=== PATIENT | female | born 1945 | race Caucasian/White ===

== ENCOUNTER 2016-08-28 11:34 | Emergency (ER) | payer OTHER ==
[~2016-08-28] VITALS: Ht 162.6 cm; Wt 98.0 kg
[~2016-08-28 11:34] MED LIST: COUM5TAB PO; COUM7.5T PO; ROBA750T3 PO; ZOCO40TA PO
[2016-08-28 11:37] VITALS: BP 146/91; PULSE 90; RESP 16; TEMP 97.6; O2SAT 97
[2016-08-28] MEDS ORDERED: WARF-23 PO (11:58)
[2016-08-28] MEDS ORDERED: LEVO25TA4 PO (11:58)
[2016-08-28] MEDS ORDERED: OMEP20TA PO (11:58)
[2016-08-28] MEDS ORDERED: SIMV40TA PO (11:58)
[2016-08-28] MEDS ORDERED: SODIUM CHLOR 0.9% 1000 ML INJ 1,000 ML IV ONE (12:09)
[2016-08-28] MEDS ORDERED: DEXAMETHASONE SOD PHOS 20 MG/5 ML VIAL IV PUSH ONE (12:15)
[2016-08-28] MEDS ORDERED: diphenhydrAMINE HCL 50 MG/ML VIAL IV PUSH ONE (12:15)
[2016-08-28] MEDS ORDERED: SODIUM CHLORIDE 0.9% FLUSH 10 ML FLUSH IVF PRN (12:15)
[2016-08-28] MEDS ORDERED: METOCLOPRAMIDE HCL 10 MG/2 ML VIAL IVP ONE (12:15)
[2016-08-28 12:18] VITALS: O2SAT 98
--- NOTE | 2016-08-28 12:26 | PD ---
HPI Chief Complaint: Dizziness Time Seen by Provider: 11:56 Travel History International Travel<30 days: No Contact w/Intl Traveler<30days: No Traveled to known affect area: No History of Present Illness HPI Patient is a 70-year-old female who presents to emergency room with c/o of a headache. She reports that she has had a headache since yesterday and reports that it is frontal in nature. Denies any trauma or fall, denies any vision changes. Reports no nausea or vomiting with her symptoms. Patient reports that this is not the worse headache her life, she did not take any medications for relief her symptoms. Patient reports that this morning, she had an episode of dizziness, reports that she felt vertiginous, reports that symptoms lasted 15 minutes and resolved on its own. Patient at this time denies any dizziness, reports only a frontal headache. 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 Patient denies any chest pain or shortness of breath, no fevers or chills, no other complaints at this time. PFSH Past Medical History Hx Anticoagulant Therapy: Yes (WARFARIN) Atrial Fibrillation: Yes Cardiovascular Problems: Yes (CHOL) High Cholesterol: Yes Diabetes: No Diminished Hearing: No Deep Vein Thrombosis: Yes (LEFT LEG in past pe) Immunizations Current: No Thyroid Disease: Yes Tetanus Vaccination: Unknown Influenza Vaccination: No ?: Not Menopausal: Yes Past Surgical History Other Surgery: Yes (VENA CAVA FILTER) Social History Alcohol Use: No Tobacco Use: No Substance Use: No Allergies-Medications (Allergen,Severity, Reaction): Coded Allergies: No Known Allergies (Unverified , 08/28/16) Reported Meds & Prescriptions Reported Meds & Active Scripts Active Reported Omeprazole 20 Mg Tab 20 Mg PO DAILY Levothyroxine (Levothyroxine Sodium) 25 Mcg Tab 25 Mcg PO DAILY Simvastatin 40 Mg Tab 40 Mg PO DAILY Warfarin 5 Mg Tab 5 Mg PO DAILY Review of Systems General / Constitutional: No: Fever Eyes: No: Diploplia, Blurred Vision, Photophobia, Drainage, Visual changes HENT: Positive: Headaches, Vertigo, No: Lightheadedness Cardiovascular: No: Chest Pain or Discomfort Respiratory: No: Shortness of Breath Gastrointestinal: No: Abdominal Pain Genitourinary: No: Dysuria Musculoskeletal: No: Pain Skin: No Rash Neurologic: Positive: Dizziness, Headache, No: Weakness, Syncope, Coordination Problem, Tremor, Slurred Speech, Paresthesia, Incontinence, Seizures, Sensory Disturbance Psychiatric: No: Depression Endocrine: No: Polydipsia Hematologic/Lymphatic: No: Easy Bruising Physical Exam Narrative GENERAL: NAD, nontoxic SKIN: Focused skin assessment warm/dry. HEAD: Atraumatic. Normocephalic. EYES: Pupils equal and round. No scleral icterus. No injection or drainage. ENT: No nasal bleeding or discharge. Mucous membranes pink and moist. NECK: Trachea midline. No JVD. CARDIOVASCULAR: Regular rate and rhythm. No murmur appreciated. RESPIRATORY: No accessory muscle use. Clear to auscultation. Breath sounds equal bilaterally. GASTROINTESTINAL: Abdomen soft, non-tender, nondistended. Hepatic and splenic margins not palpable. MUSCULOSKELETAL: No obvious deformities. No clubbing. No cyanosis. No edema. NEUROLOGICAL: Awake and alert. No obvious cranial nerve deficits. Motor grossly within normal limits. Normal speech. CN 2-12 grossly intact with no neurovascular compromise PSYCHIATRIC: Appropriate mood and affect; insight and judgment normal. Data Data Last Documented VS Vital Signs Date Time Temp Pulse Resp B/P Pulse Ox O2 Delivery O2 Flow Rate FiO2 08/28/16 14:12 76 18 135/75 98 Room Air 08/28/16 11:37 97.6 Orders Complete Blood Count With Diff (08/28/16 12:09) Comprehensive Metabolic Panel (08/28/16 12:09) Prothrombin Time / Inr (Pt) (08/28/16 12:09) Act Partial Throm Time (Ptt) (08/28/16 12:09) Ct Brain W/O Iv Contrast(Rout) (08/28/16 12:09) Ecg Monitoring (08/28/16 12:09) Iv Access Insert/Monitor (08/28/16 12:09) Oximetry (08/28/16 12:09) Sodium Chloride 0.9% Flush (Ns Flush) (08/28/16 12:15) Metoclopramide Inj (Reglan Inj) (08/28/16 12:15) Sodium Chlor 0.9% 1000 Ml Inj (Ns 1000 M (08/28/16 12:09) Diphenhydramine Inj (Benadryl Inj) (08/28/16 12:15) Dexamethasone Inj (Decadron Inj) (08/28/16 12:15) Urinalysis - C+S If Indicated (08/28/16 12:09) Amoxicil-Clavulanate (Augmentin) (08/28/16 14:15) Labs Laboratory Tests Test 08/28/16 08/28/16 12:18 13:30 White Blood Count 4.9 TH/MM3 Red Blood Count 4.51 MIL/MM3 Hemoglobin 14.2 GM/DL Hematocrit 41.5 % Mean Corpuscular Volume 92.2 FL Mean Corpuscular Hemoglobin 31.6 PG Mean Corpuscular Hemoglobin 34.3 % Concent Red Cell Distribution Width 12.9 % Platelet Count 203 TH/MM3 Mean Platelet Volume 7.5 FL Neutrophils (%) (Auto) 54.3 % Lymphocytes (%) (Auto) 32.3 % Monocytes (%) (Auto) 7.4 % Eosinophils (%) (Auto) 4.7 % Basophils (%) (Auto) 1.3 % Neutrophils # (Auto) 2.5 TH/MM3 Lymphocytes # (Auto) 1.6 TH/MM3 Monocytes # (Auto) 0.4 TH/MM3 Eosinophils # (Auto) 0.2 TH/MM3 Basophils # (Auto) 0.1 TH/MM3 CBC Comment DIFF FINAL Differential Comment Prothrombin Time 24.4 SEC Prothromb Time International 2.1 RATIO Ratio Activated Partial 35.5 SEC Thromboplast Time Sodium Level 142 MEQ/L Potassium Level 3.7 MEQ/L Chloride Level 107 MEQ/L Carbon Dioxide Level 30.4 MEQ/L Anion Gap 5 MEQ/L Blood Urea Nitrogen 14 MG/DL Creatinine 0.76 MG/DL Estimat Glomerular Filtration 75 ML/MIN Rate Random Glucose 105 MG/DL Calcium Level 8.2 MG/DL Total Bilirubin 0.5 MG/DL Aspartate Amino Transf 17 U/L (AST/SGOT) Alanine Aminotransferase 20 U/L (ALT/SGPT) Alkaline Phosphatase 92 U/L Total Protein 7.1 GM/DL Albumin 3.2 GM/DL Urine Collection Type CLEAN CATCH Urine Color YELLOW Urine Turbidity CLEAR Urine pH 6.0 Urine Specific Spangle 1.022 Urine Protein NEG mg/dL Urine Glucose (UA) NEG mg/dL Urine Ketones NEG mg/dL Urine Occult Blood NEG Urine Nitrite NEG Urine Bilirubin NEG Urine Leukocyte Esterase NEG Urine Squamous Epithelial 6-8 /hpf Cells Urine Amorphous Sediment MOD Microscopic Urinalysis Comment CULT NOT INDICATED Urine Collection Time 1330 MDM Medical Decision Making Medical Screen Exam Complete: Yes Emergency Medical Condition: Yes Interpretation(s) Vital Signs Date Time Temp Pulse Resp B/P Pulse Ox O2 Delivery O2 Flow Rate FiO2 08/28/16 11:47 95 97 Room Air 08/28/16 11:37 97.6 90 16 146/91 97 Differential Diagnosis Differential includes intracranial hemorrhage, cephalgia, electrolyte abnormality, dehydration, vertigo Narrative Course Patient is a 70-year-old female who presents to emergency room with complaints of headache and dizziness. It's that she has headache since yesterday, reports that "pressure to my forehead" since yesterday. Patient reports 15 minutes of dizziness this morning which has since resolved. Patient has not taken any medications for resolution of her headache. Patient well-appearing, cranial nerves 2- 12 grossly intact with no neurological deficits. Vital Signs Date Time Temp Pulse Resp B/P Pulse Ox O2 Delivery O2 Flow Rate FiO2 08/28/16 11:47 95 97 Room Air 08/28/16 11:37 97.6 90 16 146/[address] head, will obtain lab work, will treat as a migraine headache with steroids, antiemetics and Benadryl and IV fluids. Vital Signs Date Time Temp Pulse Resp B/P Pulse Ox O2 Delivery O2 Flow Rate FiO2 08/28/16 14:12 76 18 135/75 98 Room Air 08/28/16 13:16 76 18 146/77 100 Room Air 08/28/16 12:18 98 Room Air 08/28/16 11:47 95 97 Room Air 08/28/16 11:37 97.6 90 16 146/91 97 Laboratory Tests Test 08/28/16 08/28/16 12:18 13:30 White Blood Count 4.9 TH/MM3 (4.0-11.0) Red Blood Count 4.51 MIL/MM3 (4.00-5.30) Hemoglobin 14.2 GM/DL (11.6-15.3) Hematocrit 41.5 % (35.0-46.0) Mean Corpuscular Volume 92.2 FL (80.0-100.0) Mean Corpuscular Hemoglobin 31.6 PG (27.0-34.0) Mean Corpuscular Hemoglobin 34.3 % Concent (32.0-36.0) Red Cell Distribution Width 12.9 % (11.6-17.2) Platelet Count 203 TH/MM3 (150-450) Mean Platelet Volume 7.5 FL (7.0-11.0) Neutrophils (%) (Auto) 54.3 % (16.0-70.0) Lymphocytes (%) (Auto) 32.3 % (9.0-44.0) Monocytes (%) (Auto) 7.4 % (0.0-8.0) Eosinophils (%) (Auto) 4.7 % (0.0-4.0) Basophils (%) (Auto) 1.3 % (0.0-2.0) Neutrophils # (Auto) 2.5 TH/MM3 (1.8-7.7) Lymphocytes # (Auto) 1.6 TH/MM3 (1.0-4.8) Monocytes # (Auto) 0.4 TH/MM3 (0-0.9) Eosinophils # (Auto) 0.2 TH/MM3 (0-0.4) Basophils # (Auto) 0.1 TH/MM3 (0-0.2) CBC Comment DIFF FINAL Differential Comment Prothrombin Time 24.4 SEC (9.8-11.6) Prothromb Time International 2.1 RATIO Ratio Activated Partial 35.5 SEC Thromboplast Time (24.3-30.1) Sodium Level 142 MEQ/L (136-145) Potassium Level 3.7 MEQ/L (3.5-5.1) Chloride Level 107 MEQ/L (98-107) Carbon Dioxide Level 30.4 MEQ/L (21.0-32.0) Anion Gap 5 MEQ/L (5-15) Blood Urea Nitrogen 14 MG/DL (7-18) Creatinine 0.76 MG/DL (0.50-1.00) Estimat Glomerular Filtration 75 ML/MIN (>89) Rate Random Glucose 105 MG/DL (74-106) Calcium Level 8.2 MG/DL (8.5-10.1) Total Bilirubin 0.5 MG/DL (0.2-1.0) Aspartate Amino Transf 17 U/L (15-37) (AST/SGOT) Alanine Aminotransferase 20 U/L (10-53) (ALT/SGPT) Alkaline Phosphatase 92 U/L (45-117) Total Protein 7.1 GM/DL (6.4-8.2) Albumin 3.2 GM/DL (3.4-5.0) Urine Collection Type CLEAN CATCH Urine Color YELLOW (YELLW/STRAW) Urine Turbidity CLEAR (CLEAR) Urine pH 6.0 (5.0-8.5) Urine Specific Spangle 1.022 (1.002-1.035) Urine Protein NEG mg/dL (NEG-TRACE) Urine Glucose (UA) NEG mg/dL (NEG) Urine Ketones NEG mg/dL (NEG) Urine Occult Blood NEG (NEG) Urine Nitrite NEG (NEG) Urine Bilirubin NEG (NEG) Urine Leukocyte Esterase NEG (NEG) Urine Squamous Epithelial 6-8 /hpf (0-5) Cells Urine Amorphous Sediment MOD Microscopic Urinalysis Comment CULT NOT INDICATED Urine Collection Time [address] 08/28/16 1209 Signed Impressions: Service Date/Time: Sunday, August 28, 2016 12:15 - CONCLUSION: Unremarkable study except for left maxillary sinus mucus retention cyst and possible mucosal swelling. Gm Bryson MD Patient reevaluated, patient with complete resolution of symptoms at this time. Patient ambulating in ER with normal gait. I reviewed all labs and all studies as well as all findings with patient in detail. I did give patient a copy of her CT report. Patient will follow-up with her primary care doctor and will return to the emergency with as needed. Signs an symptoms of when to return to the ER was reviewed with patient and her daughter in detail. Diagnosis Primary Impression: Sinusitis Qualified Code: J01.90 - Acute non-recurrent sinusitis, unspecified location Additional Impression: Cephalgia Qualified Code: R51 - Nonintractable headache, unspecified chronicity pattern , unspecified headache type Patient Instructions: General Instructions Additional Instructions: Please follow-up with your primary care doctor Return to emergency room if symptoms worsen or progress Return to the emergency room as needed Please take all antibiotics as prescribed Med/Other Pt SpecificInfo: Prescription(s) given Scripts Amoxicillin-Clavulanate (Augmentin)875-125 Mg Tab1 Tab PO BID 10 Days Ref 0 Prov:Heidi Burdick DO 08/28/16 Disposition: 01 DISCHARGE HOME Condition: Stable Heidi Burdick DO Aug 28, 2016 12:26
[2016-08-28 12:32] LABS: AUTOMATED NEUTROPHIL # 2.5 TH/MM3 (1.8-7.7); BASOPHIL # 0.1 TH/MM3 (0-0.2); BASOPHIL % 1.3 % (0.0-2.0); EOSINOPHIL # 0.2 TH/MM3 (0-0.4); EOSINOPHIL % 4.7 % (0.0-4.0); HEMATOCRIT 41.5 % (35.0-46.0); HEMO FLAGS DIFF FINAL; LYMPH % 32.3 % (9.0-44.0); LYMPHOCYTE # 1.6 TH/MM3 (1.0-4.8); MEAN CELL VOLUME 92.2 FL (80.0-100.0); MEAN CORPUSCULAR HEMOGLOBIN 31.6 PG (27.0-34.0); MEAN CORPUSCULAR HGB CONC 34.3 % (32.0-36.0); MONO % 7.4 % (0.0-8.0); NEUT % 54.3 % (16.0-70.0); PLATELET COUNT 203 TH/MM3 (150-450); RED BLOOD COUNT 4.51 MIL/MM3 (4.00-5.30); RED CELL DISTRIBUTION WIDTH 12.9 % (11.6-17.2); WHITE BLOOD COUNT 4.9 TH/MM3 (4.0-11.0)
[2016-08-28 12:38] LABS: CHLORIDE 107 MEQ/L (98-107); POTASSIUM 3.7 MEQ/L (3.5-5.1); SODIUM (NA) 142 MEQ/L (136-145)
[2016-08-28 12:41] LABS: ANION GAP 5 MEQ/L (5-15); BICARBONATE 30.4 MEQ/L (21.0-32.0); BLOOD UREA NITROGEN 14 MG/DL (7-18)
[2016-08-28 12:43] LABS: APTT (PATIENT) 35.5 SEC (24.3-30.1); INTERNATIONAL NORMALIZED RATIO 2.1 RATIO; PROTHROMBIN TIME - PATIENT 24.4 SEC (9.8-11.6)
[2016-08-28 12:44] LABS: ALT (GPT) 20 U/L (10-53); AST (GOT) 17 U/L (15-37); GLOMERULAR FILTRATION RATE 75 ML/MIN (>89)
[2016-08-28 12:46] LABS: TOTAL BILIRUBIN ADULT 0.5 MG/DL (0.2-1.0)
[2016-08-28 12:47] LABS: ALKALINE PHOSPHATASE 92 U/L (45-117)
--- NOTE | 2016-08-28 12:51 | RADRPT ---
EXAM DATE/TIME: 08/28/2016 12:15 [facility] COMPARISON: No previous studies available for comparison. INDICATIONS : Dizziness and head pressure. RADIATION DOSE: 60.87 CTDIvol (mGy) MEDICAL HISTORY : Hypercholesterolemia. Anticoagulant therapy SURGICAL HISTORY : Vena cava filter ENCOUNTER: Initial ACUITY: 1 day PAIN SCALE: 2/10 LOCATION: cranial TECHNIQUE: Multiple contiguous axial images were obtained of the head. Using automated exposure control and adj ustment of the mA and/or kV according to patient size, radiation dose was kept as low as reasonably a chievable to obtain optimal diagnostic quality images. DICOM format image data is available electro nically for review and comparison. FINDINGS: There is no evidence for intracranial hemorrhage, mass effect, mass lesions, edema, or extra-axial fl uid collections. The visualized bony structures appear intact. The ventricles are normal size for t he patient's age. There are no signs of acute infarction for technique. There is a mucus retention c yst and/or mucoperiosteal thickening of the left maxillary sinus. CONCLUSION: Unremarkable study except for left maxillary sinus mucus retention cyst and poss ible mucosal swelling. Gm Bryson MD on August 28, 2016 at 12:48 Board Certified Radiologist. This report was verified electronically.
[2016-08-28 13:16] VITALS: BP 146/77; PULSE 76; RESP 18; O2SAT 100
[2016-08-28 13:49] LABS: BLOOD, URINE NEG (NEG); GLUCOSE,URINE NEG (NEG); KETONE, URINE NEG (NEG); NITRITE,URINE NEG (NEG)
[2016-08-28 14:00] LABS: CULTURE IF INDICATED CULT NOT INDICATED; METHOD OF COLLECTION CLEAN CATCH; URINE COLOR YELLOW (YELLW/STRAW)
[2016-08-28 14:01] LABS: COMMENT (UR) CULT NOT INDICATED; COMMENT2 (UR) MUCOUS PRESENT
[2016-08-28 14:12] VITALS: BP 135/75; PULSE 76; RESP 18; O2SAT 98
[2016-08-28] MEDS ORDERED: AMOXICILLIN/CLAVULANATE K 875 MG TAB PO ONE (14:15)
[2016-08-28] MEDS ORDERED: AUGM875T3 PO (14:40)
== END 2016-08-28 14:54 | disposition home or self-care (01) ==
LOC: PHED 11:34
DX: J01.90 Acute sinusitis, unspecified (principal); R51 Headache; R42 Dizziness and giddiness; E78.00 Pure hypercholesterolemia, unspecified; E07.9 Disorder of thyroid, unspecified; Z79.01 Long term (current) use of anticoagulants; Z86.711 Personal history of pulmonary embolism; Z86.718 Personal history of other venous thrombosis and embolism; Z86.79 Personal history of other diseases of the circulatory system
CPT/HCPCS: 70450; 80053; 81001; 85025; 85610; 85730; 96361; 96374; 96375; 99285; J1100; J1200; J2765; J7030

== ENCOUNTER → 2016-09-12 | Day surgery (SDC) | payer OTHER ==
[~2016-09-12] MED LIST changes: +AUGM875T3 PO; +BUPIVACAINE/EPINEPHRINE 0.5% 50 ML VIAL ONE; -COUM5TAB PO; -COUM7.5T PO; +KETOROLAC TROMETHAMINE 30 MG/ML (IVP) VIAL IV PUSH ONE; +LACTATED RINGER'S 1000 ML INJ 1,000 ML ONE; +LEVO25TA4 PO; +MEPERIDINE HCL 25 MG/ML VIAL ONE; +MIDAZOLAM HCL 2 MG/2 ML VIAL ONE; +OMEP20TA PO; +ONDANSETRON HCL 4 MG/2 ML VIAL IV PUSH ONE; +PROPOFOL 200 MG/20 ML AMP IV ONE; -ROBA750T3 PO; +SIMV40TA PO; +WARF-23 PO; -ZOCO40TA PO; +ceFAZolin 2 GM PREMIX 50 ML ONE; +metroNIDAZOLE 500 MG INJ 100 ML IV ONE
--- NOTE | 2016-09-12 12:53 | TN ---
cc: ALEXANDER HEADLEY M.D. DATE OF SURGERY: 09/12/2016 PREOPERATIVE DIAGNOSIS Calcified gallbladder, question porcelain gallbladder, abnormal HIDA scan. POSTOPERATIVE DIAGNOSIS Calcified gallbladder, question porcelain gallbladder, abnormal HIDA scan. PROCEDURE Laparoscopic cholecystectomy. SURGEON Dr. 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 INDICATION This is a pleasant 70-year-old obese woman, patient of Dr. Anne, who has had an abnormal ultrasound of the gallbladder with wall echo sign consistent with either porcelain gallbladder or gallbladder packed with stones. She has had increasing discomfort associated with eating spaghetti sauce and drinking too much coffee. She has had a colonoscopy. She takes Protonix. 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 She had an EGD and was found to have stomach polyps which were biopsied. She had a HIDA scan which showed abnormally slow uptake of radionuclide. Recommendations have been made for laparoscopic cholecystectomy. She had preoperative pulmonary and cardiac clearance. INTRAOPERATIVE FINDINGS Gallbladder with large stone versus calcified inner wall of the gallbladder. Gallbladder removed in its entirety and sent to pathology. ESTIMATED BLOOD LOSS Less than 5 mL. DESCRIPTION OF PROCEDURE IN DETAIL The patient was identified as Linda Guidry, taken to the operating room and placed in supine position. Sequential compression devices were placed on bilateral lower extremities. Following induction of adequate general endotracheal anesthesia, the patient's abdomen was prepped and draped in the usual sterile fashion with Betadine. A timeout procedure was performed. Following completion of the timeout procedure to everyone's satisfaction within the room, the proposed incision superior and right lateral to the umbilicus was infiltrated with local anesthetic and the incision carried out with a scalpel. Dissection continued posteriorly through a generous subcutaneous fatty tissue layer until the anterior fascia was identified. This was incised in a horizontal fashion and the underlying muscle swept laterally and the posterior fascia and peritoneum entered with the surgeon's finger. The [employer] balloon Mike trocar was placed in the peritoneal cavity, its balloon inflated with CO2 insufflation until the level of 15 mmHg ensued. The patient was placed in a reverse Trendelenburg position turned to the left, and two upper abdominal 5 mm trocars were placed in the peritoneal cavity under direct laparoscopic view after incision of the skin with a scalpel. The gallbladder was immediately identified and could not be grasped due to the calcified nature of the gallbladder wall. This was either a calcified wall or an unusually large stone. The gallbladder was able to be removed from the gallbladder fossa in a dome-down technique using the Harmonic scalpel, at times dividing tissue, other times peeling the gallbladder from the gallbladder fossa. Hemostasis was controlled with the Harmonic scalpel A couple of filmy inflammatory adhesions were taken down. The gallbladder cystic duct junction was identified and the cystic arterial branch divided with the Harmonic scalpel. The cystic duct was ligated proximally and distally with 0-PDS Endoloops, divided between the Endoloops using the Harmonic scalpel. The gallbladder was placed into an Endo retriever bag and removed through the camera port fascial incision site and passed off the field for pathologic evaluation. The right upper quadrant was examined. There was no active bleeding. There was no bilious drainage. The cystic duct ligature remained intact and the cystic arterial stump was hemostatic. The remaining local anesthetic was placed in a subhepatic position and trocars removed under direct visualization. There was no evidence of bleeding from the trocar sites. The abdomen was actively desufflated through the camera port which was then removed. The posterior fascia and peritoneum were closed with running 0 Vicryl suture. The anterior fascia was closed with running 2-0 Vicryl suture. Port sites were irrigated with saline. Skin incisions were approximated with 4-0 Monocryl subcuticular sutures. Dressings were applied with Mastisol and half-inch brown Steri-Strips. The patient tolerated the procedure without apparent complication. Sponge, needle and instrument counts were correct at the end of the case. MD FERNANDO Love/MAISHA /12:14 PM /12:32 PM ROWAN
== END | disposition home or self-care (01) ==
LOC: ESDC 08:57
PROVIDERS: ATTEND Surgery Trauma Surgery
DX: K80.10 Calculus of gallbladder with chronic cholecystitis without obstruction (principal)
CPT/HCPCS: 00790; 47562; 88304; J0690; J1885; J2175; J2250; J2405; J3010; J7120